=== PATIENT | male | born 1985 | race Caucasian/White ===

== ENCOUNTER 2021-01-10 08:29 | Emergency (ER) | payer BC ==
--- NOTE | 2021-01-10 11:34 | EDM.PDOC ---
ED HPI GENERAL MEDICAL PROBLEM - General Chief Complaint: General Stated Complaint: MOLD EXPOSURE 2 WEEKS AGO/ NIGHT FEVERS AND COUGH Time Seen by Provider: 01/10/21 09:12 Source of Information: Reports: Patient History Limitations: Reports: No Limitations - History of Present Illness INITIAL COMMENTS - FREE TEXT/NARRATIVE: The patient presents with cough, fever, shortness of breath, lack of energy, dark urine and jaundice eyes. He says 2 weeks ago he was cleaning out a corn bin and was exposed to corn mold. He says it seems like the symptoms started after that. He has night sweats and fever at night. He does have a slight cough with some shortness of breath at times. He has no headache, chest pain, or abdominal pain. He did have some nausea yesterday. He is on the way camping with his family. They are headed out to [place]. His noticed he had scleral icterus. He came in to be evaluated. He works as a sequeira. He has no medical problems. He rarely drinks. He last drank over a week ago. Onset: Gradual Duration: Week(s): (2) Severity: Moderate Improves with: Reports: None Worsens with: Reports: None Associated Symptoms: Reports: Cough, Fever/Chills, Nausea/Vomiting, Shortness of Breath. Denies: Chest Pain, Headaches - Related Data Allergies Allergy/AdvReac Type Severity Reaction Status Date / Time No Known Allergies Allergy Verified 01/10/21 09:18 Home Meds: Home Meds . [No Known Home Meds] 01/10/21 [History] Past Medical History - Past Health History Medical/Surgical History: Denies Medical/Surgical History Social & Family History - Tobacco Use Tobacco Use Status *Q: Never Tobacco User - Recreational Drug Use Recreational Drug Use: No ED ROS GENERAL - Review of Systems Review Of Systems: See Below Constitutional: Reports: Fever, Chills, Weakness, Fatigue HEENT: Reports: Other (scleral ictirus) Respiratory: Reports: Shortness of Breath, Cough Cardiovascular: Reports: No Symptoms Endocrine: Reports: Fatigue GI/Abdominal: Reports: Nausea, Vomiting. Denies: Abdominal Pain : Reports: No Symptoms Musculoskeletal: Reports: No Symptoms ED EXAM, GENERAL - Physical Exam Exam: See Below Exam Limited By: No Limitations General Appearance: Alert, No Apparent Distress Eye Exam: Bilateral Eye: Other (Scleral ictirus) Ears: Normal External Exam Nose: Normal Inspection Head: Atraumatic, Normocephalic Neck: Normal Inspection Respiratory/Chest: No Respiratory Distress, Lungs Clear, Normal Breath Sounds Cardiovascular: Regular Rate, Rhythm, No Edema, No Murmur GI/Abdominal: Soft, Non-Tender, No Organomegaly, No Mass Back Exam: Normal Inspection Extremities: Normal Inspection Course - Vital Signs Last Recorded V/S: Last Vital Signs Temp 98.1 F 01/10/21 09:15 Pulse 94 01/10/21 12:30 Resp 18 01/10/21 09:15 BP 146/84 H 01/10/21 12:30 Pulse Ox 96 01/10/21 12:30 - Orders/Labs/Meds Orders: Active Orders 24 hr Category Date Time Status Cardiac Monitoring [RC] . DIRECTED Care 01/10/21 09:39 Active Peripheral IV Care [RC] . DIRECTED Care 01/10/21 12:06 Active HEPATITIS PANEL (4) [REF] Stat Lab 01/10/21 12:17 Received Sodium Chloride 0.9% [Saline Flush] Med 01/10/21 12:06 Active 10 ml FLUSH ASDIRECTED PRN Peripheral IV Insertion Adult [OM.PC] Routine Oth 01/10/21 12:06 Ordered Medication Orders Sodium Chloride (Sodium Chloride 0.9% 10 Ml Syringe) 10 ml FLUSH ASDIRECTED PRN PRN Reason: Keep Vein Open Last Admin: 01/10/21 13:33 Dose: 10 ml Documented by: Admin: 01/10/21 12:28 Dose: 10 ml Documented by: PAR[place] Labs: Laboratory Tests 01/10/21 01/10/21 01/10/21 Range/Units 09:41 09:54 09:57 WBC 9.97 H (4.23-9.07) K/mm3 RBC 4.49 L (4.63-6.08) M/mm3 Hgb 13.1 L (13.7-17.5) gm/dl Hct 39.2 L (40.1-51.0) % MCV 87.3 (79.0-92.2) fl MCH 29.2 (25.7-32.2) pg MCHC 33.4 (32.2-35.5) g/dl RDW Std Deviation 44.7 H (35.1-43.9) fL Plt Count 162 L (163-337) K/mm3 MPV 9.0 L (9.4-12.3) fl Neut % (Auto) 14.2 L (34.0-67.9) % Lymph % (Auto) 66.5 H (21.8-53.1) % [place] % (Auto) 13.6 H (5.3-12.2) % Eos % (Auto) 0.3 L (0.8-7.0) Baso % (Auto) 5.1 H (0.1-1.2) % Neut # (Auto) 1.41 L (1.78-5.38) K/mm3 Lymph # (Auto) 6.63 H (1.32-3.57) K/mm3 [place] # (Auto) 1.36 H (0.30-0.82) K/mm3 Eos # (Auto) 0.03 L (0.04-0.54) K/mm3 Baso # (Auto) 0.51 H (0.01-0.08) K/mm3 Manual Slide Review Abnormal smear PT (9.7-12.0) SECONDS INR Sodium (136-145) mEq/L Potassium (3.5-5.1) mEq/L Chloride (98-107) mEq/L Carbon Dioxide (21-32) mEq/L Anion Gap (5-15) BUN (7-18) mg/dL Creatinine (0.7-1.3) mg/dL Est Cr Clr Drug Dosing mL/min Estimated GFR (MDRD) (>60) mL/min BUN/Creatinine Ratio (14-18) Glucose (70-99) mg/dL Calcium (8.5-10.1) mg/dL Total Bilirubin (0.2-1.0) mg/dL AST (15-37) U/L ALT (16-63) U/L Alkaline Phosphatase (46-116) U/L C-Reactive Protein (<1.0) mg/dL Total Protein (6.4-8.2) g/dl Albumin (3.4-5.0) g/dl Globulin gm/dL Albumin/Globulin Ratio (1-2) Lipase (73-393) U/L Monoscreen Positive H (NEGATIVE) SARS-CoV-2 RNA (SHANI) Negative (NEGATIVE) 01/10/21 01/10/21 Range/Units 09:57 12:58 WBC (4.23-9.07) K/mm3 RBC (4.63-6.08) M/mm3 Hgb (13.7-17.5) gm/dl Hct (40.1-51.0) % MCV (79.0-92.2) fl MCH (25.7-32.2) pg MCHC (32.2-35.5) g/dl RDW Std Deviation (35.1-43.9) fL Plt Count (163-337) K/mm3 MPV (9.4-12.3) fl Neut % (Auto) (34.0-67.9) % Lymph % (Auto) (21.8-53.1) % [place] % (Auto) (5.3-12.2) % Eos % (Auto) (0.8-7.0) Baso % (Auto) (0.1-1.2) % Neut # (Auto) (1.78-5.38) K/mm3 Lymph # (Auto) (1.32-3.57) K/mm3 [place] # (Auto) (0.30-0.82) K/mm3 Eos # (Auto) (0.04-0.54) K/mm3 Baso # (Auto) (0.01-0.08) K/mm3 Manual Slide Review PT 11.5 (9.7-12.0) SECONDS INR 1.08 Sodium 140 (136-145) mEq/L Potassium 3.3 L (3.5-5.1) mEq/L Chloride 101 (98-107) mEq/L Carbon Dioxide 25 (21-32) mEq/L Anion Gap 17.3 H (5-15) BUN 5 L (7-18) mg/dL Creatinine 0.8 (0.7-1.3) mg/dL Est Cr Clr Drug Dosing 145.65 mL/min Estimated GFR (MDRD) > 60 (>60) mL/min BUN/Creatinine Ratio 6.3 L (14-18) Glucose 95 (70-99) mg/dL Calcium 8.6 (8.5-10.1) mg/dL Total Bilirubin 6.3 H (0.2-1.0) mg/dL AST 774 H (15-37) U/L ALT 1412 H (16-63) U/L Alkaline Phosphatase 555 H (46-116) U/L C-Reactive Protein 3.0 H* (<1.0) mg/dL Total Protein 6.8 (6.4-8.2) g/dl Albumin 3.2 L (3.4-5.0) g/dl Globulin 3.6 gm/dL Albumin/Globulin Ratio 0.9 L (1-2) Lipase 254 (73-393) U/L Monoscreen (NEGATIVE) SARS-CoV-2 RNA (SHANI) (NEGATIVE) Meds: Medications Generic Name Dose Route Start Last Admin Trade Name Freq PRN Reason Stop Dose Admin Sodium Chloride 10 ml 01/10/21 12:06 01/10/21 13:33 Sodium Chloride 0.9% 10 Ml Syringe FLUSH 10 ml ASDIRECTED PRN Administration Keep Vein Open Discontinued Medications Generic Name Dose Route Start Last Admin Trade Name Freq PRN Reason Stop Dose Admin Sodium Chloride 1,000 mls @ 1,000 mls/hr 01/10/21 12:07 01/10/21 12:27 Normal Saline IV 01/10/21 13:06 1,000 mls/hr ONETIME ONE Administration Iopamidol 100 ml 01/10/21 13:21 01/10/21 13:33 Iopamidol 612 Mg/Ml 100 Ml Bottle IVPUSH 01/10/21 13:22 100 ml ONETIME ONE Administration - Re-Assessments/Exams Free Text/Narrative Re-Assessment/Exam: 01/10/21 12:20 I ordered labs, CXR and COVID 19. His CXR looks good. His COVID 19 is negative. His WBC was elevated at 9.97 with a predominance of lymphocytes. His Hgb was 13.1. His platelets were a little low at 162. His K was a little low at 3.3. His anion gap was elevated at 17.3. His total bili is very high at 6.3. His AST is elevated at 774. His ALT is elevated at 1412. His alk phos is elevated at 555. His CRP is elevated at 3. I have ordered mono, hepatitis panel and a CT of his abdomen and pelvis with IV contrast. 01/10/21 15:[address] shows enlarged spleen with length of 18.7cm. No etiology is seen on this study to explain this finding. Gallbladder shows equivocal surrounding inflammatory change. Gallbladder is not well distended. No calcified gallstones are seen. Minimal diverticulosis. No additional abnormality is appreciated on CT study of the abdomen and pelvis. The patient [place] southwest of the [facility] and would like to go back there for admission. I called [facility] and talked with Dr Viera the hospitalist cotton ginner helper and she accepted the patient. The patient refuses to be flown back there. I informed [facility] of this and they would rather like him to be flown but they will still accept him. Departure - Departure Time of Disposition: 15:20 Disposition: DC/Tfer to [facility] 02 Condition: Serious Clinical Impression: Acute hepatitis, Mononucleosis syndrome, Elevated liver enzymes - Discharge Information *PRESCRIPTION DRUG MONITORING PROGRAM REVIEWED*: Not Applicable *COPY OF PRESCRIPTION DRUG MONITORING REPORT IN PATIENT OCTAVIANO: Not Applicable Referrals: PCP,None [Primary Care Provider] - Forms: ED Department Discharge Additional Instructions: Go directly to [facility]. They will be expecting you. Call [phone] if you get worse on the way. Sepsis Event Note (ED) - Evaluation Sepsis Screening Result: No Definite Risk - Focused Exam Vital Signs: Vital Signs Temp Pulse Resp BP Pulse Ox 01/10/21 12:30 94 146/84 H 96 01/10/21 09:15 98.1 F 88 18 151/84 H 96 - My Orders Last 24 Hours: My Active Orders 01/10/21 09:39 Cardiac Monitoring [RC] . DIRECTED 01/10/21 12:06 Peripheral IV Care [RC] . DIRECTED Sodium Chloride 0.9% [Saline Flush] 10 ml FLUSH ASDIRECTED PRN Peripheral IV Insertion Adult [OM.PC] Routine 01/10/21 12:17 HEPATITIS PANEL (4) [REF] Stat - Assessment/Plan Last 24 Hours: My Active Orders 01/10/21 09:39 Cardiac Monitoring [RC] . DIRECTED 01/10/21 12:06 Peripheral IV Care [RC] . DIRECTED Sodium Chloride 0.9% [Saline Flush] 10 ml FLUSH ASDIRECTED PRN Peripheral IV Insertion Adult [OM.PC] Routine 01/10/21 12:17 HEPATITIS PANEL (4) [REF] Stat
[2021-01-10] MEDS ORDERED: Sodium Chloride 0.9% 1,000 ML IV ONE (12:07)
[2021-01-10] MEDS: Sodium Chloride 0.9% 10 ML Syringe FLUSH PRN ×2 (12:28→13:33)
[2021-01-10] MEDS ORDERED: Iopamidol 612 MG/ML 100 ML Bottle IVPUSH ONE (13:21)
--- NOTE | 2021-01-10 13:54 | CT ---
CT abdomen and pelvis Technique: Multiple axial sections were obtained from above the dome of the diaphragm inferiorly through the pubic symphysis. Intravenous contrast was utilized. No oral contrast was given. Delayed images were also obtained through the bladder. Reconstructed coronal and sagittal images were obtained. Comparison: No prior CT abdomen or pelvis exam is available. Findings: Visualized lung bases show nothing acute. Liver contains no focal parenchymal abnormality. Spleen size is enlarged with length of 18.7 cm. Adrenal glands show no nodule. Pancreas shows no abnormality. Kidneys show symmetric contrast enhancement with no hydronephrosis or mass being seen. Gallbladder is not well distended. There is equivocal inflammatory change around the gallbladder being seen. No calcified gallstones are noted. Abdominal aorta shows no aneurysm. No retroperitoneal adenopathy or mesenteric abnormalities are seen. Bladder is slightly distended presumably due to lack of voiding. Appendix is noted and is normal in size. Minimal diverticulosis was seen within the colon with no findings of diverticulitis. No free fluid or other inflammatory change is seen. Delayed images show contrast within the distal ureters and the bladder. Bone window settings were reviewed and show no acute osseous abnormality. Impression: 1. Enlarged spleen with length of 18.7 cm. No etiology is seen on this study to explain this finding. 2. Gallbladder shows equivocal surrounding inflammatory change. Gallbladder is not well distended. No calcified gallstones are seen. 3. Minimal diverticulosis. 4. No additional abnormality is appreciated on CT study of the abdomen and pelvis. Diagnostic code #3
--- NOTE | 2021-01-10 13:58 | CR ---
Chest: Portable view of the chest was obtained. Comparison: No prior chest imaging is available. Heart size and mediastinum are within normal limits. Lungs are clear with no acute parenchymal change. No acute osseous abnormality is appreciated. Impression: 1. Nothing acute is seen on portable chest x-ray. Diagnostic code #1
== END 2021-01-10 15:28 ==
LOC: JD.ED 08:29
DX: B17.9 Acute viral hepatitis, unspecified (principal); B27.90 Infectious mononucleosis, unspecified without complication; R74.8 Abnormal levels of other serum enzymes; Z20.822 Contact with and (suspected) exposure to COVID-19
CPT/HCPCS: 36415; 71045; 74177; 80053; 80074; 83690; 85025; 85610; 86140; 86308; 87635; 99285; J7030; Q9967; U0002